=== PATIENT | female | born 1985 | race Caucasian/White ===

== ENCOUNTER 2018-11-16 19:10 | Emergency (ER) | payer OTHER ==
[~2018-11-16] VITALS: Ht 177.8 cm; Wt 108.9 kg
[~2018-11-16 19:10] MED LIST: IBUPROFEN 800800 M1 PO; NOHOMEMEDICATIONS; TRAMADOL 50 MG50 MG PO
[2018-11-16] MEDS ORDERED: BUTALB-APAP-CA1 EACH PO (20:24)
[2018-11-16 20:35] VITALS: BP 106/70
== END 2018-11-16 20:36 | disposition home or self-care (01) ==
LOC: M.ERS 19:10
DX: M54.2 Cervicalgia (principal); R51 Headache; M25.512 Pain in left shoulder; Z98.890 Other specified postprocedural states; V49.49XA Driver injured in collision with other motor vehicles in traffic accident, initial encounter; Y93.89 Activity, other specified; Y92.89 Other specified places as the place of occurrence of the external cause; Y99.8 Other external cause status